=== PATIENT | male | born 1940 | race Caucasian/White ===

== ENCOUNTER 2019-01-02 19:13 | Emergency (ER) | payer MEDICARE, BC ==
[~2019-01-02] VITALS: Ht 167.6 cm; Wt 81.6 kg
[2019-01-02] MEDS ORDERED: ASPIRIN 81 MG TAB.CHEW PO ONE (19:30)
[2019-01-02] MEDS ORDERED: IV NORMAL SALINE 1000 ML BAG IV ONE (19:30)
[2019-01-02] MEDS ORDERED: NITROGLYCERIN 0.4 MG/TAB BOTTLE SL ONE ×2 (19:30→19:38)
[2019-01-02] MEDS ORDERED: ASPIRIN 81 MG TAB.CHEW ONE (19:38)
--- NOTE | 2019-01-02 19:43 | NUR ---
AFTER 1ST DOSE OF NITRO LEFT SIDE CP IS 7/10 FROM 10
[2019-01-02 19:45] LABS: BASOPHILS # (AUTO) 0.1 K/uL (0.0-8.0); EOSINOPHILS # (AUTO) 0.1 K/uL (0.0-0.7); EOSINOPHILS % (AUTO) 0.8 % (0.0-7.0); HEMOGLOBIN 15.1 g/dL (12.5-16.3); LYMPHOCYTES # (AUTO) 2.7 K/uL (20.0-40.0); LYMPHOCYTES % (AUTO) 31.8 % (20.5-51.5); MEAN CORPUSCULAR HEMOGLOBIN 31.6 uug (23.8-33.4); MEAN CORPUSCULAR HGB CONC 34 g/dL (32.5-36.3); MEAN CORPUSCULAR VOLUME 94.3 fL (73.0-96.2); MONOCYTES # (AUTO) 0.5 K/uL (2.0-10.0); MONOCYTES % (AUTO) 6.1 % (0.0-11.0); NEUTROPHILS # (AUTO) 5.1 K/uL (1.8-8.9); NEUTROPHILS % (AUTO) 60.3 % (38.5-71.5); PLATELET COUNT (AUTO) 250 K/uL (152-348); RED BLOOD CELL COUNT(AUTO) 4.77 MIL/uL (4.06-5.63); WHITE BLOOD COUNT (AUTO) 8.5 K/uL (3.6-10.2)
[2019-01-02] MEDS ORDERED: SITA1TBM7 PO (19:45)
[2019-01-02] MEDS ORDERED: CLON1TAB12 PO (19:45)
[2019-01-02] MEDS ORDERED: BUDE10.22 IH (19:45)
[2019-01-02] MEDS ORDERED: ALIS300T PO (19:45)
[2019-01-02] MEDS ORDERED: PITA4TAB PO (19:45)
--- NOTE | 2019-01-02 19:48 | NUR ---
CP IS 6/10. HOLD 3RD DOSE OF NITRO DUE TO BP 99/70
[2019-01-02 19:54] LABS: CARBON DIOXIDE 23 mmol/L (21-32); CHLORIDE 107 mmol/L (98-107); CREATININE 0.9 mg/dL (0.6-1.3); GLUCOSE 109 mg/dL (74-106); POTASSIUM 4.1 mmol/L (3.5-5.1); UREA NITROGEN, BLOOD 14 mg/dL (7-18)
[2019-01-02 20:07] LABS: ALANINE AMINOTRANSFERASE 16 U/L (16-63); ALKALINE PHOSPHATASE 57 U/L (50-136); ASPARTATE AMINOTRANSFERASE 12 U/L (15-37); BILIRUBIN,DIRECT 0.2 mg/dL (0.0-0.2); BILIRUBIN,TOTAL 0.4 mg/dL (0.2-1.0); TOTAL PROTEIN, SERUM 7.1 g/dL (6.4-8.2)
[2019-01-02] MEDS ORDERED: ONDANSETRON IV *ER 4 MG/2 ML VIAL IV ONE (20:15)
[2019-01-02] MEDS ORDERED: HYDROMORPHONE 1 MG/1 ML DISP.SYRIN IV ONE (20:15)
[2019-01-02] MEDS ORDERED: ONDANSETRON 4 MG/2 ML VIAL ONE (20:25)
[2019-01-02] MEDS ORDERED: HYDROMORPHONE 1 MG/1 ML DISP.SYRIN ONE (20:25)
--- NOTE | 2019-01-02 23:00 | NUR ---
IV removed. Catheter intact and site benign. Pressure and 4x4 gauze applied to site. No bleeding noted.
--- NOTE | 2019-01-02 23:03 | NUR ---
Patient discharged to home in stable conditon WITH DAUGHTER TAKING PATIENT HOME. Written and verbal after care instructions given. Patient verbalizes understanding of instructions. WALKED OUT OF ER WITH NO DISTRESS NOTED
[2019-01-02 23:05] VITALS: BP 135/75
== END 2019-01-02 23:06 | disposition home or self-care (01) ==
LOC: ER 19:15
DX: R07.89 Other chest pain (principal); M54.9 Dorsalgia, unspecified; J44.9 Chronic obstructive pulmonary disease, unspecified; E11.9 Type 2 diabetes mellitus without complications; I10 Essential (primary) hypertension; E78.5 Hyperlipidemia, unspecified; Z79.899 Other long term (current) drug therapy
CPT/HCPCS: 36415; 71045; 74176; 80048; 80076; 83880; 84484; 85025; 85730; 93005 ×2; 96374; 96375; 99284; J1170; J2405; 70030-TC; A4663; J7030

== ENCOUNTER 2019-03-17 19:27 | Inpatient (IN) | payer MEDICARE, BC ==
[~2019-03-17] VITALS: Ht 182.9 cm; Wt 68.2 kg
[~2019-03-17 19:27] MED LIST: ALIS300T PO; BUDE10.22 IH; CLON1TAB12 PO; PITA4TAB PO; SITA1TBM7 PO
[2019-03-17] MEDS ORDERED: LIDOCAINE 1%-EPI 1:100,000 20 ML VIAL TP ONE (19:45)
[2019-03-17] MEDS ORDERED: TDAP DIPH,PERTUSS,TET VAC/PF 0.5 ML DISP.SYRIN IM ONE ×2 (19:45→20:48)
[2019-03-17] MEDS ORDERED: SODIUM BICARBONATE 4.2 % (NEUT) 5 ML VIAL TP ONE (19:45)
[2019-03-17] MEDS ORDERED: ONDANSETRON 4 MG/2 ML VIAL ONE (19:55)
[2019-03-17] MEDS ORDERED: IV NORMAL SALINE 1000 ML BAG IV ONE (20:00)
[2019-03-17] MEDS ORDERED: ONDANSETRON IV *ER 4 MG/2 ML VIAL IV ONE (20:00)
[2019-03-17 20:04] LABS: BASOPHILS # (AUTO) 0.1 K/uL (0.0-8.0); BASOPHILS % (AUTO) 0.9 % (0.0-2.0); EOSINOPHILS # (AUTO) 0.1 K/uL (0.0-0.7); EOSINOPHILS % (AUTO) 1.8 % (0.0-7.0); HEMATOCRIT 46.6 % (36.7-47.1); HEMOGLOBIN 15.8 g/dL (12.5-16.3); LYMPHOCYTES # (AUTO) 2.5 K/uL (20.0-40.0); MEAN CORPUSCULAR HEMOGLOBIN 31.3 uug (23.8-33.4); MEAN CORPUSCULAR HGB CONC 34 g/dL (32.5-36.3); MEAN CORPUSCULAR VOLUME 92.2 fL (73.0-96.2); MONOCYTES # (AUTO) 0.5 K/uL (2.0-10.0); MONOCYTES % (AUTO) 6.1 % (0.0-11.0); NEUTROPHILS # (AUTO) 4.8 K/uL (1.8-8.9); NEUTROPHILS % (AUTO) 60.2 % (38.5-71.5); PLATELET COUNT (AUTO) 207 K/uL (152-348); RED BLOOD CELL COUNT(AUTO) 5.06 MIL/uL (4.06-5.63); WHITE BLOOD COUNT (AUTO) 7.9 K/uL (3.6-10.2)
[2019-03-17 20:19] LABS: ALANINE AMINOTRANSFERASE 12 U/L (16-63); ALKALINE PHOSPHATASE 79 U/L (50-136); ASPARTATE AMINOTRANSFERASE 8 U/L (15-37); BILIRUBIN,DIRECT 0.1 mg/dL (0.0-0.2); BILIRUBIN,TOTAL 0.2 mg/dL (0.2-1.0); CARBON DIOXIDE 22 mmol/L (21-32); CHLORIDE 108 mmol/L (98-107); CREATININE 0.7 mg/dL (0.6-1.3); GLUCOSE 157 mg/dL (74-106); POTASSIUM 3.6 mmol/L (3.5-5.1); TOTAL PROTEIN, SERUM 6.7 g/dL (6.4-8.2); UREA NITROGEN, BLOOD 12 mg/dL (7-18)
--- NOTE | 2019-03-17 20:24 | NUR ---
Pt went down to radiology dept for xray & ct scan, accompanied by daughter. no acute distress noted.
--- NOTE | 2019-03-17 21:05 | NUR ---
Suture tray set up. Dr. Beckett at bedside.
[2019-03-17] MEDS ORDERED: NEOMY/BACITRA/POLYMYXIN B OINT UD PACKET TP ONE (21:22)
--- NOTE | 2019-03-17 21:35 | NUR ---
Paged [facility] for panel call. Pending call back from Dr. De Dios.
--- NOTE | 2019-03-17 21:39 | NUR ---
GREGORIO Adams MD, speaking to Dr. Lanre Amin via telephone.
[2019-03-17] MEDS ORDERED: ROSU10TA2 PO (21:43)
[2019-03-17] MEDS ORDERED: METF-494 PO (21:43)
[2019-03-17] MEDS ORDERED: GABA100C PO (21:43)
[2019-03-17] MEDS ORDERED: AZIL1TAB3 PO (21:43)
--- NOTE | 2019-03-17 21:51 | NUR ---
Pt. admitted to Telemetry, under care of Dr. Lanre Amin. Diagnosis: Syncope. Belongs List completed.
--- NOTE | 2019-03-17 22:00 | NUR ---
Admitting notes: patient received on unit with daughter and son-in-law at side. All pertinent assessments completed and patient history documented. Patient is alert and oriented x3, is Farsi speaking but does understand Senegalese and can respond to inquiries in Senegalese. Photographic documentation taken of forehead laceration that was present on admission. All new orders from reviewed and carried out per shift. VS are wnl and patient is stable. Safety and fall precaution measures have been implemented. Call light and personal items are within reach at all times. Will continue to monitor.
[2019-03-17 22:25] VITALS: BP 167/88
[2019-03-17] MEDS ORDERED: MORPHINE SULFATE 2 MG/1 ML DISP.SYRIN IV PRN (22:45)
[2019-03-17] MEDS ORDERED: ONDANSETRON 4 MG/2 ML VIAL IV PRN (23:00)
[2019-03-17] MEDS: ACETAMINOPHEN 325 MG TABLET PO PRN (23:02)
[2019-03-17] MEDS ORDERED: ZOLPIDEM 5 MG TABLET PO PRN (23:30)
[2019-03-17] MEDS: ALBUTEROL SULFATE 2.5 MG/3 ML NEBU NEB PRN (23:30)
[2019-03-17] MEDS ORDERED: DEXTROSE 50% 50 ML DISP.SYRIN IV PRN (23:45)
[2019-03-17] MEDS ORDERED: INSULIN REGULAR, HUMAN 300 UNIT/3 ML VIAL SQ PRN (23:45)
[2019-03-18 00:38] VITALS: BP 109/61
[2019-03-18 04:37] VITALS: BP 115/65
[2019-03-18] MEDS: ALBUTEROL SULFATE 2.5 MG/3 ML NEBU NEB PRN (05:04)
--- NOTE | 2019-03-18 05:13 | NUR ---
Patient slept throughout night after receiving prescribed prn sleeping medication. Complaints of pain were addressed with prescribed acetaminophen, which brought patient relief. VS are wnl and patient is stable. All safety and fall precaution measures remain in place. Call light and personal items are within reach at all times.
[2019-03-18] MEDS: ACETAMINOPHEN 325 MG TABLET PO PRN (05:28)
[2019-03-18] MEDS: BLOOD SUGAR DIAGNOSTIC 1 EACH STRIP VI SCH ×2 (05:35→13:13)
--- NOTE | 2019-03-18 06:40 | NUR ---
Daughter called to check on father. I advised that patient slept comfortably throughout night and did eat after she left. Daughter would like to know if doctor will see her dad today and what time. I explained that doctor will see father today but do not have a specific time when he will arrive. Daughter would like to be contacted if Dr. De Dios decides to run additional tests and with updates. Daughter, Sweta, phone number is [phone]. Son-in-law, Blake, phone number is [phone].
--- NOTE | 2019-03-18 06:49 | NUR ---
For any updates on patient, or if any tests are ordered by doctor, please call jenniferSweta at [phone]. Son-in-lawBlake's number is [phone].
[2019-03-18 06:54] LABS: BASOPHILS # (AUTO) 0.1 K/uL (0.0-8.0); BASOPHILS % (AUTO) 1.1 % (0.0-2.0); EOSINOPHILS # (AUTO) 0.1 K/uL (0.0-0.7); EOSINOPHILS % (AUTO) 1.4 % (0.0-7.0); HEMATOCRIT 44.9 % (36.7-47.1); HEMOGLOBIN 14.8 g/dL (12.5-16.3); LYMPHOCYTES # (AUTO) 2.7 K/uL (20.0-40.0); MEAN CORPUSCULAR HEMOGLOBIN 30.7 uug (23.8-33.4); MEAN CORPUSCULAR HGB CONC 33 g/dL (32.5-36.3); MEAN CORPUSCULAR VOLUME 93.4 fL (73.0-96.2); MONOCYTES # (AUTO) 0.6 K/uL (2.0-10.0); MONOCYTES % (AUTO) 8.3 % (0.0-11.0); NEUTROPHILS # (AUTO) 4.1 K/uL (1.8-8.9); NEUTROPHILS % (AUTO) 53.2 % (38.5-71.5); PLATELET COUNT (AUTO) 193 K/uL (152-348); RED BLOOD CELL COUNT(AUTO) 4.81 MIL/uL (4.06-5.63); WHITE BLOOD COUNT (AUTO) 7.6 K/uL (3.6-10.2)
[2019-03-18] MEDS ORDERED: PANTOPRAZOLE SODIUM 40 MG TABLET.DR PO SCH (07:00)
[2019-03-18 07:26] LABS: ALANINE AMINOTRANSFERASE 10 U/L (16-63); ALKALINE PHOSPHATASE 69 U/L (50-136); ASPARTATE AMINOTRANSFERASE 10 U/L (15-37); BILIRUBIN,TOTAL 0.4 mg/dL (0.2-1.0); CARBON DIOXIDE 28 mmol/L (21-32); CHLORIDE 107 mmol/L (98-107); CHOLESTEROL 225 mg/dL (<200); CREATININE 0.8 mg/dL (0.6-1.3); GLUCOSE 158 mg/dL (74-106); HDL CHOLESTEROL 49 mg/dL (40-60); MAGNESIUM 1.8 mg/dL (1.8-2.4); PHOSPHOROUS 3.5 mg/dL (2.5-4.9); POTASSIUM 4.2 mmol/L (3.5-5.1); TOTAL PROTEIN, SERUM 6.2 g/dL (6.4-8.2); TRIGLYCERIDES 162 MG/DL (30-150); UREA NITROGEN, BLOOD 14 mg/dL (7-18)
[2019-03-18] MEDS ORDERED: BLOOD SUGAR DIAGNOSTIC 1 EACH STRIP VI SCH (07:30)
[2019-03-18] MEDS ORDERED: CHLORTHALIDONE 25 MG TABLET PO SCH (10:00)
[2019-03-18] MEDS ORDERED: LOSARTAN POTASSIUM 50 MG TABLET PO SCH (10:00)
[2019-03-18] MEDS ORDERED: HYDROCODONE/APAP 5-325MG TABLET PO PRN (10:00)
[2019-03-18] MEDS ORDERED: FLUTICASONE/VILANTEROL 1 EACH BLST.W.DEV INH SCH (10:45)
[2019-03-18] MEDS ORDERED: IBUPROFEN 400 MG TABLET PO PRN ×2 (11:00→11:15)
[2019-03-18] MEDS ORDERED: GABAPENTIN 100 MG CAPSULE PO PRN (11:30)
[2019-03-18] MEDS ORDERED: IBUPROFEN 600 MG TABLET PO PRN (11:30)
[2019-03-18] MEDS ORDERED: IBUPROFEN 200 MG TABLET PO STA (11:37)
[2019-03-18 11:52] VITALS: BP 146/87
[2019-03-18 16:16] VITALS: BP 136/72
--- NOTE | 2019-03-18 17:25 | NUR ---
HOME INSTRUCTIONS REVIEWED WITH PT. AND DAUGHTER. I/V D/C'D. VERBAL AND WRITTEN HOME INSTRUCTIONS GIVEN. FWW ADJUSTED FOR PT HEIGHT AND GIVEN TO PT. FOR HOME USE. PITER ALAMO, DR. ARRIOLA IN TO SEE PT. REVIEW ALL TEST RESULTS AND REVIEW PLAN OF CARE AND HOME CARE. DISCHARGED TO DAUGHTER VIA W/C BY R.N.
[2019-03-18] MEDS ORDERED: METFORMIN XR 500 MG TAB.SR.24H PO SCH ×2 (18:00)
[2019-03-18] MEDS ORDERED: CLONAZEPAM 1 MG TABLET PO SCH (21:00)
[2019-03-18] MEDS ORDERED: CLONAZEPAM 1 MG TABLET PO PRN (21:00)
[2019-03-18] MEDS ORDERED: ATORVASTATIN 20 MG TABLET PO SCH (21:00)
== END 2019-03-18 17:15 | disposition home or self-care (01) | DRG 74 ==
LOC: ER 19:29 → TELE3 21:52
PROVIDERS: ADMIT Internal Medicine; ATTEND Nurse Practitioner Acute Care
PROC: 0HQ1XZZ Repair Face Skin, External Approach (ICD-10-PCS; principal; 2019-03-17)
DX: G90.8 Other disorders of autonomic nervous system (principal); S01.81XA Laceration without foreign body of other part of head, initial encounter; W18.30XA Fall on same level, unspecified, initial encounter; Y92.039 Unspecified place in apartment as the place of occurrence of the external cause; E78.5 Hyperlipidemia, unspecified; I10 Essential (primary) hypertension; S20.212A Contusion of left front wall of thorax, initial encounter; Y92.89 Other specified places as the place of occurrence of the external cause; R55 Syncope and collapse; J44.9 Chronic obstructive pulmonary disease, unspecified; E11.9 Type 2 diabetes mellitus without complications; Z79.84 Long term (current) use of oral hypoglycemic drugs; Z79.51 Long term (current) use of inhaled steroids; Z79.899 Other long term (current) drug therapy; F17.210 Nicotine dependence, cigarettes, uncomplicated
CPT/HCPCS: 36415; 70030-TC; 70450; 71045; 71101; 83735; 84100; 84443; 85025; 85730; 90715; 93005; 93307; 94640; 94664; A4663; G0378; J1815; J2405; J3490

== ENCOUNTER 2019-03-27 10:05 | Emergency (ER) | payer MEDICARE, BC ==
[~2019-03-27] VITALS: Ht 182.9 cm; Wt 68.5 kg
[~2019-03-27 10:05] MED LIST changes: +GABA100C PO; +METF-494 PO
--- NOTE | 2019-03-27 10:27 | NUR ---
PT IS IN ROOM #2A. DR MARIEE EVALUATED THE PT.
[2019-03-27] MEDS ORDERED: LIDOCAINE HCL 1% 20 ML VIAL IJ ONE (10:30)
[2019-03-27] MEDS ORDERED: LIDOCAINE HCL 1% 20 ML VIAL ONE (10:42)
[2019-03-27 10:45] LABS: BASOPHILS # (AUTO) 0.1 K/uL (0.0-8.0); BASOPHILS % (AUTO) 1.2 % (0.0-2.0); EOSINOPHILS # (AUTO) 0.2 K/uL (0.0-0.7); EOSINOPHILS % (AUTO) 1.8 % (0.0-7.0); HEMATOCRIT 45.9 % (36.7-47.1); HEMOGLOBIN 15.9 g/dL (12.5-16.3); LYMPHOCYTES # (AUTO) 2.4 K/uL (20.0-40.0); LYMPHOCYTES % (AUTO) 27.8 % (20.5-51.5); MEAN CORPUSCULAR HEMOGLOBIN 31.4 uug (23.8-33.4); MEAN CORPUSCULAR HGB CONC 35 g/dL (32.5-36.3); MEAN CORPUSCULAR VOLUME 90.9 fL (73.0-96.2); MONOCYTES # (AUTO) 0.5 K/uL (2.0-10.0); MONOCYTES % (AUTO) 6.2 % (0.0-11.0); NEUTROPHILS # (AUTO) 5.5 K/uL (1.8-8.9); PLATELET COUNT (AUTO) 227 K/uL (152-348); RED BLOOD CELL COUNT(AUTO) 5.05 MIL/uL (4.06-5.63); WHITE BLOOD COUNT (AUTO) 8.7 K/uL (3.6-10.2)
[2019-03-27 11:00] LABS: ALANINE AMINOTRANSFERASE 11 U/L (16-63); ALKALINE PHOSPHATASE 84 U/L (50-136); ASPARTATE AMINOTRANSFERASE 8 U/L (15-37); BILIRUBIN,DIRECT 0.2 mg/dL (0.0-0.2); BILIRUBIN,TOTAL 1.1 mg/dL (0.2-1.0); CARBON DIOXIDE 27 mmol/L (21-32); CHLORIDE 101 mmol/L (98-107); GLUCOSE 223 mg/dL (74-106); POTASSIUM 4.9 mmol/L (3.5-5.1); TOTAL PROTEIN, SERUM 7.1 g/dL (6.4-8.2); UREA NITROGEN, BLOOD 19 mg/dL (7-18)
[2019-03-27] MEDS ORDERED: NEOMY/BACITRA/POLYMYXIN B OINT UD PACKET TP ONE ×2 (11:45→11:46)
--- NOTE | 2019-03-27 12:24 | NUR ---
PT WAS DC'd TO HOME. D/C INSTRUCTIONS GIVEN TO THE PT AND TO HIS FAMILY. NO BLEEDING. DRESSING OF THE WOUND IS INTACT.
[2019-03-27 12:26] VITALS: BP 138/77
== END 2019-03-27 12:27 | disposition home or self-care (01) ==
LOC: ER 10:05
DX: S02.2XXA Fracture of nasal bones, initial encounter for closed fracture (principal); S01.81XA Laceration without foreign body of other part of head, initial encounter; S00.531A Contusion of lip, initial encounter; S80.212A Abrasion, left knee, initial encounter; M25.512 Pain in left shoulder; J45.909 Unspecified asthma, uncomplicated; E11.9 Type 2 diabetes mellitus without complications; I10 Essential (primary) hypertension; E78.5 Hyperlipidemia, unspecified; F17.200 Nicotine dependence, unspecified, uncomplicated; Z88.0 Allergy status to penicillin; Z79.899 Other long term (current) drug therapy; X58.XXXA Exposure to other specified factors, initial encounter; Y93.89 Activity, other specified; Y92.89 Other specified places as the place of occurrence of the external cause; Y99.8 Other external cause status
CPT/HCPCS: 12013; 36415; 70160; 70450; 72125; 80048; 80076; 84484; 85025; 85730; 93005; 99284; J3490; 70030-TC; A4217; A4663; J7030

== ENCOUNTER 2020-03-26 14:55 | Inpatient (IN) | payer MEDICARE, BC ==
[~2020-03-26] VITALS: Ht 165.1 cm; Wt 69.9 kg
[2020-03-26 15:12] LABS: BASOPHILS # (AUTO) 0.1 K/uL (0.0-8.0); BASOPHILS % (AUTO) 0.5 % (0.0-2.0); HEMATOCRIT 51.6 % (36.7-47.1); LYMPHOCYTES # (AUTO) 1.5 K/uL (20.0-40.0); LYMPHOCYTES % (AUTO) 13.5 % (20.5-51.5); MEAN CORPUSCULAR HEMOGLOBIN 31.8 uug (23.8-33.4); MEAN CORPUSCULAR HGB CONC 33 g/dL (32.5-36.3); MEAN CORPUSCULAR VOLUME 96.5 fL (73.0-96.2); MONOCYTES # (AUTO) 1.1 K/uL (2.0-10.0); MONOCYTES % (AUTO) 10.1 % (0.0-11.0); NEUTROPHILS # (AUTO) 8.6 K/uL (1.8-8.9); NEUTROPHILS % (AUTO) 75.9 % (38.5-71.5); PLATELET COUNT (AUTO) 226 K/uL (152-348); RED BLOOD CELL COUNT(AUTO) 5.35 MIL/uL (4.06-5.63); WHITE BLOOD COUNT (AUTO) 11.3 K/uL (3.6-10.2)
--- NOTE | 2020-03-26 15:13 | NUR ---
Patient is in CT scan with nursing erection shop supervisor Antolin. CODE STROKE in progress
[2020-03-26 15:23] LABS: CREATININE 1.1 mg/dL (0.6-1.3); POTASSIUM 4.9 mmol/L (3.5-5.1)
[2020-03-26 15:30] LABS: BILIRUBIN,DIRECT 0.1 mg/dL (0.0-0.2); BILIRUBIN,TOTAL 0.7 mg/dL (0.2-1.0); TOTAL PROTEIN, SERUM 7.7 g/dL (6.4-8.2)
[2020-03-26] MEDS ORDERED: SWABABLE VALVE TRANSFER SET EA MC ONE (15:55)
[2020-03-26] MEDS ORDERED: IV NORMAL SALINE 250 ML IV ONE (15:55)
[2020-03-26] MEDS ORDERED: IOHEXOL 350 100 ML INFUS..BTL ONE (15:55)
[2020-03-26] MEDS ORDERED: NEBI5TAB8 PO (16:21)
[2020-03-26] MEDS ORDERED: LEVE500T20 PO (16:21)
[2020-03-26] MEDS ORDERED: SOLI10TA2 PO (16:21)
[2020-03-26] MEDS ORDERED: TRAZ-182 PO (16:21)
--- NOTE | 2020-03-26 16:30 | NUR ---
CALLED [facility] FOR PANEL PLACEMENT
[2020-03-26] MEDS ORDERED: ASPIRIN 81 MG TAB.CHEW PO ONE (16:45)
[2020-03-26] MEDS ORDERED: IV NORMAL SALINE 1000 ML BAG IV ONE (17:00)
[2020-03-26] MEDS ORDERED: ASPIRIN 81 MG TAB.CHEW ONE (17:02)
[2020-03-26] MEDS ORDERED: MAG HYDROX/AL HYDROX/SIMETH 30 ML LIQUID UDC PO PRN (17:30)
[2020-03-26] MEDS ORDERED: DEXTROSE 50% 50 ML DISP.SYRIN IV PRN (17:45)
--- NOTE | 2020-03-26 19:03 | NUR ---
Assumed care for patient at this time. AO x 3. Able to verbalize needs, clear speech. Able to drink water with straw, as requested. Report received from outgoing RN, per RN we are just waiting for Covid rapid results, and report was given to Avani RN from 3rd floor. Patient in semi fowlers position, still noted with bilateral arm/leg weakness. Side rails up x 2. Bed locked in position.
--- NOTE | 2020-03-26 19:28 | NUR ---
COVID results for patient is negative per Dr. Beckett, patient is ready to go up.
[2020-03-26] MEDS ORDERED: LABETALOL HCL 100 MG/20 ML VIAL IV PRN (19:45)
[2020-03-26] MEDS ORDERED: LABETALOL HCL 100 MG/20 ML VIAL ONE (19:46)
--- NOTE | 2020-03-26 20:05 | NUR ---
Patient transported to Room 304. admitted under [facility] ROWE. Dx: R Arm Weakness. Belongings list completed. report given to Kinga SANCHEZ.
[2020-03-26 20:10] VITALS: BP 134/74
--- NOTE | 2020-03-26 20:10 | NUR ---
Admitted a 80 years old male with Diagnosis of CVA. Patient AAOx2-3. In no acute distress. O2 sat at 98% on RA, although complained of mild SOB and provided O2 at 2LPM via NC. Also complained of pain on right shoulder and back area, will notify . NSR on tele at 98/min. Denies any chest pain. Unable to move right arm. NIHHS/Stroke assessment done per protocol. IV site on left AC intact and patent. Routine admission care done. Plan of care initiated. Safety measure initiated and call stevens within reached.
[2020-03-26] MEDS: IV NS 1000 ML 1,000 ML IV PRN (20:36)
[2020-03-26] MEDS ORDERED: CLONAZEPAM 1 MG TABLET PO PRN (21:00)
--- NOTE | 2020-03-26 21:30 | NUR ---
Paged Dr. Blount to inform regarding pt complain of pain. Awaiting for return call.
[2020-03-26] MEDS: BLOOD SUGAR DIAGNOSTIC 1 EACH STRIP VI SCH (21:31)
--- NOTE | 2020-03-26 21:51 | NUR ---
Dr. Blount called back with order to start patient on Morphine 2mg IV Q4HRS PRN for pain. Order read back and verified. Will carry out order.
[2020-03-26] MEDS: MORPHINE SULFATE 2 MG/1 ML DISP.SYRIN IV PRN (22:45)
--- NOTE | 2020-03-26 23:00 | NUR ---
MRI questionnaire done with pt. Able to answer all questions. Unable to sign due to right arm weakness. Questionnaire signed by this nurse and witnessed by charge nurse Xiao.
--- NOTE | 2020-03-26 23:30 | NUR ---
Patient noted now being able to move right hand and fingers only. Still unable to lift up right arm. Continue to monitor.
[2020-03-27] VITALS: BP 130/80
[2020-03-27 04:00] VITALS: BP 128/72
--- NOTE | 2020-03-27 05:38 | NUR ---
Patient unable to move right UE again. Will continue to monitor.
--- NOTE | 2020-03-27 05:59 | NUR ---
AAOx2-3. In no acute distress. O2 at 2LPM via NC in place. O2 sat at 97%. Morphine 2mg IV PRN per order given for complain of right shoulder and back area with helped. SR on tele with occasional PVC's at 94/min. Needs attended to and met. Safety measure maintained and call stevens within reached.
[2020-03-27] MEDS: IV NS 1000 ML 1,000 ML IV PRN ×2 (06:14→17:52)
--- NOTE | 2020-03-27 06:23 | NUR ---
TEXTED DR. DENT FOR MRI APPROVAL.
[2020-03-27 06:31] LABS: BASOPHILS # (AUTO) 0.1 K/uL (0.0-8.0); EOSINOPHILS % (AUTO) 0.3 % (0.0-7.0); HEMATOCRIT 40.3 % (36.7-47.1); HEMOGLOBIN 13.6 g/dL (12.5-16.3); LYMPHOCYTES # (AUTO) 2.8 K/uL (20.0-40.0); LYMPHOCYTES % (AUTO) 29.9 % (20.5-51.5); MEAN CORPUSCULAR HEMOGLOBIN 32.3 uug (23.8-33.4); MEAN CORPUSCULAR HGB CONC 34 g/dL (32.5-36.3); MEAN CORPUSCULAR VOLUME 95.9 fL (73.0-96.2); MONOCYTES # (AUTO) 0.9 K/uL (2.0-10.0); NEUTROPHILS # (AUTO) 5.5 K/uL (1.8-8.9); NEUTROPHILS % (AUTO) 58.8 % (38.5-71.5); PLATELET COUNT (AUTO) 170 K/uL (152-348); WHITE BLOOD COUNT (AUTO) 9.3 K/uL (3.6-10.2)
[2020-03-27 06:37] LABS: POTASSIUM 3.8 mmol/L (3.5-5.1)
[2020-03-27] MEDS: MORPHINE SULFATE 2 MG/1 ML DISP.SYRIN IV PRN ×3 (06:37→21:49)
[2020-03-27] MEDS: BLOOD SUGAR DIAGNOSTIC 1 EACH STRIP VI SCH ×4 (06:37→20:40)
[2020-03-27 06:44] LABS: BILIRUBIN,DIRECT 0.1 mg/dL (0.0-0.2); BILIRUBIN,TOTAL 0.6 mg/dL (0.2-1.0); TOTAL PROTEIN, SERUM 5.7 g/dL (6.4-8.2)
[2020-03-27 06:52] LABS: THYROID STIMULATING HORMONE 0.399 mIU/mL (0.358-3.740)
--- NOTE | 2020-03-27 07:15 | NUR ---
pt received in bed sleeping call light with in reach vs are stable pt is on o2 2l via nasal canula
[2020-03-27] MEDS: ASPIRIN EC 81 MG TABLET.DR PO SCH (08:14)
[2020-03-27] MEDS: levETIRAcetam 500 MG TABLET PO SCH ×2 (08:14→16:00)
[2020-03-27] MEDS: OXYBUTYNIN CHLORIDE 5 MG TABLET PO SCH (08:15)
[2020-03-27] MEDS ORDERED: IPRATROPIUM BROMIDE 0.5 MG/2.5 ML NEBU NEB PRN (09:00)
--- NOTE | 2020-03-27 10:28 | NUR ---
pt went to [facility] via ambulances for mri in stable condition
--- NOTE | 2020-03-27 11:38 | NUR ---
pt received back from mri in stable condition
[2020-03-27 11:47] VITALS: BP 126/72
[2020-03-27] MEDS: INSULIN REGULAR, HUMAN 300 UNIT/3 ML VIAL SQ PRN ×3 (12:03→20:24)
--- NOTE | 2020-03-27 15:11 | NUR ---
Drawer In Hand Consultation: SW met with this patient today. Patient is a 80 year old male. Patient was lying down in bed, in his assigned hospital room. Patient was alert, oriented, receptive to meeting with this SW. Patient's Upper Sorbian speaking skills are limited, however still sufficient enough for SW to gather information from the patient. Patient states that 2 nights ago, he was feeling dizzy, and experienced weakness in his right upper and lower extremities. Patient reports that his daughter came to his house in the morning, after which paramedics were called and patient was brought to the ED. Patient states prior to this incident, he was independent with his ADL's and was also driving. SW administered the PHQ-9 to assess patient's mood and behavior. Patient denied experiencing any major feelings of sadness, difficulty with sleep or appetite, or any changes in his behavior or physical activity over the last 2 weeks. Patient expressed being worried about the weakness in his right extremities. SW validated and normalized patient's feelings, and provided support. Patient was pleasant, cooperative, and discussed discharge plans of wanting to return home. SW will continue to be available to the patient throughout his hospitalization, as needed. SW will work with the interdisciplinary team and case management, as needed, to ensure a safe discharge.
[2020-03-27 15:49] VITALS: BP 105/61
--- NOTE | 2020-03-27 19:30 | NUR ---
Patient alert oriented, no sob no chest pain, tele monitor sinus rhythm with pvc. Patient denies pain at this time, rendered good craig care. cont to monitor.
[2020-03-27 20:06] VITALS: BP 134/74
--- NOTE | 2020-03-27 22:15 | NUR ---
Patient complain of r shoulder pain, but patient able to moved right arm with some difficulty due to pain, medicated patient with effective results, rendered good craig care, no s/s of desaturation noted, cont to monitor.
[2020-03-27] MEDS: TRAZODONE 50 MG TABLET PO PRN (22:31)
[2020-03-28 00:03] VITALS: BP 128/72
[2020-03-28] MEDS: IV NS 1000 ML 1,000 ML IV PRN (04:00)
[2020-03-28 04:03] VITALS: BP 126/67
[2020-03-28] MEDS: BLOOD SUGAR DIAGNOSTIC 1 EACH STRIP VI SCH ×4 (05:46→20:36)
--- NOTE | 2020-03-28 05:57 | NUR ---
PATIENT ALERT ORIENTED, NO SOB NO CHEST PAIN, TELE MONITOR SINUS RYTHYM WITH PVC. PATIENT CONT ON PAIN MANAGEMENT OF R SHOULDER, RENDERED GOOD TARIQ CARE DUE BLADDER INCONTINENT, NO S/S OF HYPO/HYPERGYLCEMIA AT THIS TIME, CONT TO MONITOR.
[2020-03-28 06:18] LABS: BASOPHILS % (AUTO) 0.5 % (0.0-2.0); EOSINOPHILS # (AUTO) 0.1 K/uL (0.0-0.7); EOSINOPHILS % (AUTO) 0.9 % (0.0-7.0); HEMATOCRIT 37.6 % (36.7-47.1); HEMOGLOBIN 12.8 g/dL (12.5-16.3); LYMPHOCYTES # (AUTO) 2.5 K/uL (20.0-40.0); LYMPHOCYTES % (AUTO) 39.1 % (20.5-51.5); MEAN CORPUSCULAR HEMOGLOBIN 32.6 uug (23.8-33.4); MEAN CORPUSCULAR HGB CONC 34 g/dL (32.5-36.3); MEAN CORPUSCULAR VOLUME 96.1 fL (73.0-96.2); MONOCYTES # (AUTO) 0.5 K/uL (2.0-10.0); MONOCYTES % (AUTO) 7.6 % (0.0-11.0); NEUTROPHILS # (AUTO) 3.4 K/uL (1.8-8.9); NEUTROPHILS % (AUTO) 51.9 % (38.5-71.5); PLATELET COUNT (AUTO) 155 K/uL (152-348); RED BLOOD CELL COUNT(AUTO) 3.92 MIL/uL (4.06-5.63); WHITE BLOOD COUNT (AUTO) 6.5 K/uL (3.6-10.2)
[2020-03-28] MEDS: MORPHINE SULFATE 2 MG/1 ML DISP.SYRIN IV PRN ×4 (06:22→23:33)
[2020-03-28 06:30] LABS: CREATININE 0.7 mg/dL (0.6-1.3); POTASSIUM 3.7 mmol/L (3.5-5.1)
[2020-03-28] MEDS: OXYBUTYNIN CHLORIDE 5 MG TABLET PO SCH (08:00)
[2020-03-28] MEDS: ASPIRIN EC 81 MG TABLET.DR PO SCH (08:00)
[2020-03-28] MEDS: levETIRAcetam 500 MG TABLET PO SCH (08:00)
[2020-03-28] MEDS: INSULIN REGULAR, HUMAN 300 UNIT/3 ML VIAL SQ PRN ×2 (10:45→20:30)
[2020-03-28 11:40] VITALS: BP 120/64
[2020-03-28] MEDS ORDERED: ATOR20TA PO (12:19)
[2020-03-28] MEDS ORDERED: ASPI-618 PO (12:19)
[2020-03-28 16:24] VITALS: BP 135/76
[2020-03-28] MEDS: FLUTICASONE/VILANTEROL 1 EACH BLST.W.DEV INH SCH (16:40)
--- NOTE | 2020-03-28 20:00 | NUR ---
RECEIVED PATIENT AWAKE IN BED. C/O PAIN IN RIGHT SHOULDER. GIVEN MS 2MG IV PRN PER RN. VS WNL. NO RESP. DISTRESS NOTED. H/L INTACT AND PATENT. BED ALARM ON. CALL LIGHT IN REACH. ALL NEEDS ATTENDED. WILL CONTINUE TO MONITOR AND ASSESS.
[2020-03-28 20:08] VITALS: BP 130/79
[2020-03-28] MEDS: ATORVASTATIN 40 MG TABLET PO SCH (20:30)
[2020-03-28] MEDS: TRAZODONE 50 MG TABLET PO PRN (20:30)
[2020-03-28] MEDS ORDERED: ATORVASTATIN 20 MG TABLET PO SCH ×2 (21:00)
--- NOTE | 2020-03-29 05:14 | NUR ---
PATIENT ALERT NO SOB NO CHEST PAIN, CONT ON PAIN MANAGEMENT DUE R SHOULDER PAIN. PATIENT KEPT CLEAN AND DRY, VOIDING FREELY, CONT TO MONITOR.
[2020-03-29 05:44] VITALS: BP 125/68
[2020-03-29] MEDS: BLOOD SUGAR DIAGNOSTIC 1 EACH STRIP VI SCH ×4 (06:33→20:20)
[2020-03-29] MEDS: FLUTICASONE/VILANTEROL 1 EACH BLST.W.DEV INH SCH (09:11)
[2020-03-29] MEDS: ASPIRIN EC 81 MG TABLET.DR PO SCH (09:11)
[2020-03-29] MEDS: OXYBUTYNIN CHLORIDE 5 MG TABLET PO SCH (09:11)
[2020-03-29 11:05] VITALS: BP 143/83
[2020-03-29] MEDS: INSULIN REGULAR, HUMAN 300 UNIT/3 ML VIAL SQ PRN ×2 (12:21→20:24)
[2020-03-29 16:00] VITALS: BP 147/85
[2020-03-29] MEDS: MORPHINE SULFATE 2 MG/1 ML DISP.SYRIN IV PRN (18:01)
--- NOTE | 2020-03-29 18:12 | NUR ---
Patient stable throughout shift, awake AOx4. On RA with no SOB or distress noted at this time. Pain on right shoulder aggravated with movement. Wound on abdomen noted, cleaned and applied abdominal gauze. Had MRI Cervical spine done today. Morphine PRN as ordered given for shoulder pain. Bed locked in lowest position with siderails 2x up. Call light within reach.
--- NOTE | 2020-03-29 19:50 | NUR ---
Patient alert and awake lying on bed , no c/o pain or any discomfort at this time. IV LFA intact . Will continue to monitor .
[2020-03-29] MEDS: ATORVASTATIN 40 MG TABLET PO SCH (20:19)
[2020-03-29 20:20] VITALS: BP 131/73
[2020-03-29] MEDS: TRAZODONE 50 MG TABLET PO PRN (21:14)
[2020-03-30 04:45] VITALS: BP 145/78
--- NOTE | 2020-03-30 06:29 | NUR ---
Patient sleeping intermittently, arousable to verbal response. No c/o of pain or any distress noted. Patient used urinal during he shift . No change in condition noted. Safety precautions observed Will continue to monitor
[2020-03-30] MEDS: BLOOD SUGAR DIAGNOSTIC 1 EACH STRIP VI SCH ×3 (06:44→16:31)
[2020-03-30] MEDS: MORPHINE SULFATE 2 MG/1 ML DISP.SYRIN IV PRN ×2 (08:07→12:49)
[2020-03-30] MEDS: ASPIRIN EC 81 MG TABLET.DR PO SCH (08:08)
[2020-03-30] MEDS: OXYBUTYNIN CHLORIDE 5 MG TABLET PO SCH (08:08)
[2020-03-30] MEDS: FLUTICASONE/VILANTEROL 1 EACH BLST.W.DEV INH SCH (08:08)
[2020-03-30] MEDS: INSULIN REGULAR, HUMAN 300 UNIT/3 ML VIAL SQ PRN ×2 (11:53→16:46)
[2020-03-30 12:00] VITALS: BP 124/68
--- NOTE | 2020-03-30 13:16 | NUR ---
patient family called two daughters and one son, stated that they do not want him to go to [facility], family stated that they have their own neurosurgeon in [place], and that doctor did not recommend mariela, that doctor gave epidural to him," patient daughters and son were yelling on the phone, stating that we do not want patient to go to any other hospital, we would like to take him home," isabel medel aware. Addendum: 03/30/20 at 1331 by GRACY FREY RN, RN family gave their doctor name POLI AGUILAR NUMBER [phone], AND SON NUMBER IS [phone], GIVEN NUMBER TO ISABEL
--- NOTE | 2020-03-30 13:22 | NUR ---
family called back two daughters and son, started yelling arguing and screaming on the phone. answered family, and this property underwriter told family that we got your message, we respect it, and we are working with doctor about your message, will get back. family constantly kept yelling and screaming on the phone.
--- NOTE | 2020-03-30 13:28 | NUR ---
charge nurse and isabel ROWE is aware about situation with family.
--- NOTE | 2020-03-30 14:40 | NUR ---
charge nurse said patient family taking patient home around 1600 AMA, patient himself stated as well that he would like to go home today, [facility] made aware.
--- NOTE | 2020-03-30 14:42 | NUR ---
dr stevens neurologist said he spoke to patient daughter hector in the morning for atleast 30 minutes and explained about patient current condition, about MRI of neck, risks and benefits.
--- NOTE | 2020-03-30 15:56 | NUR ---
FAMILY CHANGED MIND AGAIN, PATIENT DISCHARGING TO [facility], VIA AMBULANCE
[2020-03-30 16:05] VITALS: BP 128/78
--- NOTE | 2020-03-30 16:27 | NUR ---
REPORT GIVEN TO ROBERTO SANCHEZ FROM [facility]
--- NOTE | 2020-03-30 16:46 | NUR ---
SNACK GIVEN TO PATIENT
--- NOTE | 2020-03-30 17:00 | NUR ---
offered patient change, and perineal care, patient refused and stated he does not want to be changed, explained risks involved, explained about skin issues if being wet, patient still stated "not now, leave me alone". patient right to refuse respected. will offer again.
--- NOTE | 2020-03-30 17:30 | NUR ---
PATIENT IS PICKED UP BY [facility], [facility]PORT GIVEN TO AMBULANCE DINKER, AND DEYSI RN FROM [facility], PATIENT IS ALERT, ORIENTED X3, NO SOB, RESP EVEN NONLABORED, SKIN WARM AND DRY TO TOUCH, DRESSING INTACT TO LEFT UPPER ABDOMEN, BELOW CHEST ABRASION, NO DRAINAGE NOTED. PATIENT IS BEDBOUND, KEPT CLEAN AND DRY. BELONGINGS CELL PHONE, HYDRAULIC LIFT DRIVER, SHOES, SENT WITH PATIENT, DENTURES WERE IN PATIENT MOUTH. NO DISTRESS NOTED.
--- NOTE | 2020-03-30 19:06 | NUR ---
1317 CHARGE NURSE ON DUTY SAID, FAMILY SPOKE TO [facility] AND STATED THEY WOULD LIKE TO TRANSFER PATIENT IN [facility].
== END 2020-03-30 17:30 | disposition short-term general hospital (02) | DRG 552 ==
LOC: ER 14:55 → TELE3 19:32 → MEDSURG3 03-28 17:55
PROVIDERS: ADMIT Nurse Practitioner Acute Care; ATTEND Nurse Practitioner Acute Care
DX: M47.22 Other spondylosis with radiculopathy, cervical region (principal); M62.82 Rhabdomyolysis; E87.2 Acidosis; G95.89 Other specified diseases of spinal cord; M75.51 Bursitis of right shoulder; G83.21 Monoplegia of upper limb affecting right dominant side; R29.705 NIHSS score 5; E86.0 Dehydration; M25.411 Effusion, right shoulder; M75.101 Unspecified rotator cuff tear or rupture of right shoulder, not specified as traumatic; E78.5 Hyperlipidemia, unspecified; F17.210 Nicotine dependence, cigarettes, uncomplicated; I10 Essential (primary) hypertension; J44.9 Chronic obstructive pulmonary disease, unspecified; W19.XXXA Unspecified fall, initial encounter; Y93.9 Activity, unspecified; Y92.009 Unspecified place in unspecified non-institutional (private) residence as the place of occurrence of the external cause; M25.511 Pain in right shoulder; R74.0 Nonspecific elevation of levels of transaminase and lactic acid dehydrogenase [LDH]; N19 Unspecified kidney failure; Z72.89 Other problems related to lifestyle; M77.9 Enthesopathy, unspecified; E11.9 Type 2 diabetes mellitus without complications; Z79.84 Long term (current) use of oral hypoglycemic drugs; R40.2362 Coma scale, best motor response, obeys commands, at arrival to emergency department; R40.2142 Coma scale, eyes open, spontaneous, at arrival to emergency department; R40.2252 Coma scale, best verbal response, oriented, at arrival to emergency department; S20.319A Abrasion of unspecified front wall of thorax, initial encounter; R55 Syncope and collapse
CPT/HCPCS: 36415; 70030-TC; 70450; 70496; 70551; 71045; 72125; 72141; 73030; 73200; 83605; 84443; 85025; 85730; 87040; 93005; 93307; 94664; 95819; A4663; G0378; J1815; J2270; J3490; J3590; J7030; J7050; Q9967

== ENCOUNTER 2024-05-21 23:42 | Emergency (ER) | payer MEDICARE, OTHER ==
[~2024-05-21] VITALS: Ht 182.9 cm; Wt 72.6 kg
[~2024-05-21 23:42] MED LIST changes: -ALIS300T PO; +ASPI-618 PO; +ATOR20TA PO; -GABA100C PO; +LEVE500T20 PO; +NEBI5TAB8 PO; -PITA4TAB PO; +SOLI10TA2 PO; +TRAZ-182 PO
[2024-05-22 00:28] LABS: ABG BASE EXCESS -6.3 mmol/L (-2.0-3.0); ABG HCO3 19.5 mmol/L (21.0-28.0); ABG PCO2 39.9 mmHg (35.0-48.0); ABG PH 7.307 (7.350-7.450); ABG PO2 58.2 mmHg (83.0-108.0); ABG SITE RIGHT RADIAL; ABG TOTAL HEMOGLOBIN 13.1 G/dL (13.5-17.5); AaDO2 87.8 mmHg; COHb 0.3 % (0.5-1.5); MetHb 0.3 % (0.0-1.5); O2Hb 85.2 % (94.0-98.0)
[2024-05-22] MEDS: ALBUTEROL SULFATE 2.5 MG/ 0.5 ML NEBU NEB ONE (00:30)
[2024-05-22] MEDS: levoFLOXacin 750 MG/D5W 150 ML PIGGYBACK IV ONE (00:30)
[2024-05-22] MEDS: ONDANSETRON 4 MG/2 ML VIAL IV ONE (00:30)
[2024-05-22 00:44] LABS: BASOPHILS # (AUTO) 0.1 K/UL (0.0-0.2); BASOPHILS % (AUTO) 0.6 % (0.0-2.0); EOSINOPHILS # (AUTO) 0.1 K/uL (0.0-0.7); EOSINOPHILS % (AUTO) 0.9 % (0.0-7.0); HEMATOCRIT 38.4 % (36.7-47.1); HEMOGLOBIN 12.5 g/dL (12.5-16.3); LYMPHOCYTES # (AUTO) 2.2 K/uL (0.8-4.8); LYMPHOCYTES % (AUTO) 20.6 % (20.5-51.5); MEAN CORPUSCULAR HEMOGLOBIN 28.6 uug (23.8-33.4); MEAN CORPUSCULAR HGB CONC 33 g/dL (32.5-36.3); MEAN CORPUSCULAR VOLUME 87.8 fL (73.0-96.2); MONOCYTES # (AUTO) 0.4 K/uL (0.1-1.30); MONOCYTES % (AUTO) 3.9 % (0.0-11.0); NEUTROPHILS # (AUTO) 7.9 K/uL (1.8-8.9); PLATELET COUNT (AUTO) 353 K/uL (152-348); RED BLOOD CELL COUNT(AUTO) 4.37 MIL/uL (4.06-5.63); RED CELL DISTRIBUTION WIDTH 14.3 % (12.1-16.2); WHITE BLOOD COUNT (AUTO) 10.7 K/uL (3.6-10.2)
[2024-05-22 00:45] LABS: DIFFERENTIAL COMMENT 1
[2024-05-22 00:46] LABS: AMMONIA < 10 umol/L (11-32)
[2024-05-22 00:51] LABS: CALCIUM 8.6 mg/dL (8.5-10.1); CARBON DIOXIDE 23 mmol/L (21-32); CHLORIDE 107 mmol/L (98-107); GLUCOSE 140 mg/dL (74-106); POTASSIUM 3.9 mmol/L (3.5-5.1); SODIUM SERUM 144 mmol/L (136-145); UREA NITROGEN, BLOOD 15 mg/dL (7-18)
[2024-05-22 01:07] LABS: LACTIC ACID 7.2 mmol/L (0.4-2.0)
[2024-05-22 01:09] LABS: ALANINE AMINOTRANSFERASE 7 U/L (16-63); ALBUMIN 2.5 g/dL (3.4-5.0); ALKALINE PHOSPHATASE 54 U/L (50-136); ASPARTATE AMINOTRANSFERASE 15 U/L (15-37); BILIRUBIN,TOTAL 0.1 mg/dL (0.2-1.0); NT-PRO BNP 71 pg/mL (0-125); TOTAL PROTEIN, SERUM 6.5 g/dL (6.4-8.2)
[2024-05-22] MEDS ORDERED: levoFLOXacin 750MG/D5W 150 ML IV ONE (01:34)
[2024-05-22] MEDS ORDERED: ONDANSETRON 4 MG/2 ML VIAL ONE (01:34)
[2024-05-22] MEDS ORDERED: ALBUTEROL SULFATE 2.5 MG/ 0.5 ML NEBU ONE (01:43)
[2024-05-22 02:38] VITALS: BP 147/78; TEMP 98; O2SAT 87
== END 2024-05-22 02:39 | disposition left against medical advice (07) ==
LOC: ER 23:46
DX: J96.01 Acute respiratory failure with hypoxia (principal); E11.9 Type 2 diabetes mellitus without complications; J44.89 Other specified chronic obstructive pulmonary disease; E78.5 Hyperlipidemia, unspecified; F17.200 Nicotine dependence, unspecified, uncomplicated; Z79.82 Long term (current) use of aspirin; Z79.84 Long term (current) use of oral hypoglycemic drugs; Z79.51 Long term (current) use of inhaled steroids; Z79.899 Other long term (current) drug therapy; Z88.0 Allergy status to penicillin; Z88.7 Allergy status to serum and vaccine
CPT/HCPCS: 99285; 96374; 71045; 80053; 82140; 83880; 85025; 87040 ×2; 84484; 36415; 82803; 93005; 83605; 36600 ×2; J2405; A4606; A4663; J1956

== ENCOUNTER 2024-08-08 18:04 | Emergency (ER) | payer MEDICARE, OTHER ==
[~2024-08-08] VITALS: Ht 182.9 cm; Wt 72.6 kg
[2024-08-08 19:07] LABS: BASOPHILS # (AUTO) 0.1 K/UL (0.0-0.2); BASOPHILS % (AUTO) 0.7 % (0.0-2.0); EOSINOPHILS % (AUTO) 0.3 % (0.0-7.0); HEMATOCRIT 38.9 % (36.7-47.1); HEMOGLOBIN 12.5 g/dL (12.5-16.3); LYMPHOCYTES % (AUTO) 10.9 % (20.5-51.5); MEAN CORPUSCULAR HEMOGLOBIN 27.9 uug (23.8-33.4); MEAN CORPUSCULAR HGB CONC 32 g/dL (32.5-36.3); MEAN CORPUSCULAR VOLUME 86.8 fL (73.0-96.2); MONOCYTES # (AUTO) 0.5 K/uL (0.1-1.30); NEUTROPHILS # (AUTO) 7.5 K/uL (1.8-8.9); NEUTROPHILS % (AUTO) 82.1 % (38.5-71.5); PLATELET COUNT (AUTO) 279 K/uL (152-348); RED BLOOD CELL COUNT(AUTO) 4.49 MIL/uL (4.06-5.63); RED CELL DISTRIBUTION WIDTH 16.1 % (12.1-16.2); WHITE BLOOD COUNT (AUTO) 9.1 K/uL (3.6-10.2)
[2024-08-08 19:29] LABS: DIFFERENTIAL COMMENT 1
[2024-08-08] MEDS: levETIRAcetam IV 1,000 MG in IV DEXTROSE 5% 100 ML IV STA (19:29)
[2024-08-08 19:45] VITALS: O2SAT 96
[2024-08-08 19:48] LABS: CALCIUM 9.3 mg/dL (8.5-10.1); CARBON DIOXIDE 27 mmol/L (21-32); CHLORIDE 100 mmol/L (98-107); CREATININE 1.3 mg/dL (0.6-1.3); GLUCOSE 154 mg/dL (74-106); LACTIC ACID 3.7 mmol/L (0.4-2.0); POTASSIUM 4.7 mmol/L (3.5-5.1); SODIUM SERUM 138 mmol/L (136-145); UREA NITROGEN, BLOOD 15 mg/dL (7-18)
[2024-08-08 19:56] LABS: ALANINE AMINOTRANSFERASE 11 U/L (16-63); ALBUMIN 2.9 g/dL (3.4-5.0); ALKALINE PHOSPHATASE 72 U/L (50-136); ASPARTATE AMINOTRANSFERASE 20 U/L (15-37); BILIRUBIN,TOTAL 0.3 mg/dL (0.2-1.0); NT-PRO BNP 53 pg/mL (0-125); TOTAL PROTEIN, SERUM 7.2 g/dL (6.4-8.2)
== END 2024-08-08 20:00 | disposition left against medical advice (07) ==
LOC: ER 18:04
DX: G40.909 Epilepsy, unspecified, not intractable, without status epilepticus (principal); R06.02 Shortness of breath; E11.9 Type 2 diabetes mellitus without complications; E78.5 Hyperlipidemia, unspecified; F17.200 Nicotine dependence, unspecified, uncomplicated; Z79.51 Long term (current) use of inhaled steroids; Z79.82 Long term (current) use of aspirin; Z79.84 Long term (current) use of oral hypoglycemic drugs; Z79.899 Other long term (current) drug therapy; Z85.46 Personal history of malignant neoplasm of prostate; Z88.0 Allergy status to penicillin; Z88.7 Allergy status to serum and vaccine
CPT/HCPCS: 36415; 71045; 83605; 84484; 85025; A4606; A4663; J1953

== ENCOUNTER 2024-11-30 15:00 | Inpatient (IN) | payer MEDICARE, OTHER ==
[~2024-11-30] VITALS: Ht 182.9 cm; Wt 72.6 kg
[2024-11-30] MEDS: IV NORMAL SALINE 1000 ML BAG IV ONE (16:00)
[2024-11-30 16:25] LABS: BASOPHILS # (AUTO) 0.1 K/UL (0.0-0.2); BASOPHILS % (AUTO) 0.8 % (0.0-2.0); CARBON DIOXIDE 28 mmol/L (21-32); CHLORIDE 97 mmol/L (98-107); CREATININE 0.9 mg/dL (0.6-1.3); EOSINOPHILS % (AUTO) 0.1 % (0.0-7.0); GLUCOSE 111 mg/dL (74-106); HEMATOCRIT 39.4 % (36.7-47.1); HEMOGLOBIN 12.8 g/dL (12.5-16.3); LYMPHOCYTES # (AUTO) 1.4 K/uL (0.8-4.8); LYMPHOCYTES % (AUTO) 11.2 % (20.5-51.5); MEAN CORPUSCULAR HEMOGLOBIN 29.4 uug (23.8-33.4); MEAN CORPUSCULAR HGB CONC 32 g/dL (32.5-36.3); MEAN CORPUSCULAR VOLUME 90.5 fL (73.0-96.2); MONOCYTES % (AUTO) 7.7 % (0.0-11.0); NEUTROPHILS # (AUTO) 10.3 K/uL (1.8-8.9); NEUTROPHILS % (AUTO) 80.2 % (38.5-71.5); PLATELET COUNT (AUTO) 226 K/uL (152-348); POTASSIUM 4.3 mmol/L (3.5-5.1); RED BLOOD CELL COUNT(AUTO) 4.35 MIL/uL (4.06-5.63); RED CELL DISTRIBUTION WIDTH 15.6 % (12.1-16.2); SODIUM SERUM 133 mmol/L (136-145); UREA NITROGEN, BLOOD 13 mg/dL (7-18); WHITE BLOOD COUNT (AUTO) 12.8 K/uL (3.6-10.2)
[2024-11-30 16:27] LABS: DIFFERENTIAL COMMENT 1
[2024-11-30 16:37] LABS: LACTIC ACID 2.4 mmol/L (0.4-2.0)
[2024-11-30 16:42] LABS: ALANINE AMINOTRANSFERASE 14 U/L (16-63); ALBUMIN 2.7 g/dL (3.4-5.0); ALKALINE PHOSPHATASE 67 U/L (50-136); ASPARTATE AMINOTRANSFERASE 14 U/L (15-37); BILIRUBIN,DIRECT 0.4 mg/dL (0.0-0.2); NT-PRO BNP 458 pg/mL (0-125); TOTAL PROTEIN, SERUM 7.5 g/dL (6.4-8.2)
[2024-11-30 18:02] LABS: *BILIRUBIN,URIN NEGATIVE (NEGATIVE); *BLOOD, URINE 2+ (NEGATIVE); *COLOR,URINE DARK YELLOW (YELLOW); *KETONES,URINE 2+ (NEGATIVE); *PROTEIN,URINE 2+ (NEGATIVE); LEUKOCYTE ESTERASE ,URINE TRACE (NEGATIVE); NITRITE, URINE POSITIVE (NEGATIVE); PH,URINE 6.5 (5.0-8.0); UGLUCOSE NEGATIVE (NEGATIVE)
[2024-11-30 18:07] LABS: *CLARITY,URINE SLIGHTLY CLOUDY (CLEAR)
[2024-11-30 18:10] LABS: BACTERIA,URINE MANY /HPF (NONE SEEN); SQUAMOUS EPITHELIAL CELL,UR FEW /HPF (NONE SEEN)
[2024-11-30] MEDS ORDERED: MAGNESIUM HYDROXIDE 30 ML LIQUID UDC PO PRN (18:45)
[2024-11-30] MEDS ORDERED: REMEDY ESSENTIAL ZINC PASTE 113 GM TP PRN (18:45)
[2024-11-30] MEDS ORDERED: TRAZODONE 50 MG TABLET PO PRN (18:45)
[2024-11-30] MEDS ORDERED: ACETAMINOPHEN 325 MG TABLET PO PRN (18:45)
[2024-11-30] MEDS ORDERED: AZITHROMYCIN 500MG/ D5W 250ML IVPB **ER PYXIS ONLY IV ONE (19:31)
[2024-11-30] MEDS: AZITHROMYCIN IV 500 MG in IV DEXTROSE 5% 250 ML IV ONE (19:39)
[2024-11-30] MEDS: IV NS 1000 ML 1,000 ML IV PRN (20:16)
[2024-11-30] MEDS ORDERED: CEFTRIAXONE /D5W 50ML IVPB **ER PYXIS IV ONE (20:57)
[2024-11-30] MEDS ORDERED: levoFLOXacin 500 MG/D5W 100 ML ONE (20:57)
[2024-11-30] MEDS: CEFTRIAXONE 1 G in IV DEXTROSE 5% 50 ML IV ONE (21:14)
[2024-11-30] MEDS: ALBUTEROL SULFATE 2.5 MG/3 ML NEBU NEB PRN (21:25)
[2024-11-30] MEDS: IPRATROPIUM BROMIDE 0.5 MG/2.5 ML NEBU NEB PRN (21:25)
[2024-11-30] MEDS: CLONAZEPAM 1 MG TABLET PO SCH (22:15)
[2024-11-30] MEDS: ATORVASTATIN 20 MG TABLET PO SCH (22:16)
[2024-11-30] MEDS: HEPARIN SODIUM,PORCINE 5,000 UNITS/ML VIAL SQ SCH (22:17)
[2024-11-30] MEDS: levoFLOXacin 500 MG/D5W 500 MG in PREMIXED 1 EACH IV SCH (22:18)
[2024-11-30 23:03] VITALS: BP 115/58; TEMP 98.2; O2SAT 97
[2024-12-01] VITALS (8 sets, daily range): BP systolic 120–159; BP diastolic 51–86; TEMP 97.4–99.3; O2SAT 94–99
[2024-12-01 07:39] LABS: BASOPHILS % (AUTO) 0.5 % (0.0-2.0); EOSINOPHILS % (AUTO) 0.4 % (0.0-7.0); HEMATOCRIT 34.5 % (36.7-47.1); HEMOGLOBIN 11.6 g/dL (12.5-16.3); LYMPHOCYTES # (AUTO) 1.2 K/uL (0.8-4.8); LYMPHOCYTES % (AUTO) 15.9 % (20.5-51.5); MEAN CORPUSCULAR HEMOGLOBIN 30.4 uug (23.8-33.4); MEAN CORPUSCULAR HGB CONC 34 g/dL (32.5-36.3); MEAN CORPUSCULAR VOLUME 90.6 fL (73.0-96.2); MONOCYTES # (AUTO) 0.7 K/uL (0.1-1.30); MONOCYTES % (AUTO) 9.3 % (0.0-11.0); NEUTROPHILS # (AUTO) 5.4 K/uL (1.8-8.9); NEUTROPHILS % (AUTO) 73.9 % (38.5-71.5); PLATELET COUNT (AUTO) 195 K/uL (152-348); RED BLOOD CELL COUNT(AUTO) 3.81 MIL/uL (4.06-5.63); RED CELL DISTRIBUTION WIDTH 15.5 % (12.1-16.2); WHITE BLOOD COUNT (AUTO) 7.4 K/uL (3.6-10.2)
[2024-12-01 07:47] LABS: DIFFERENTIAL COMMENT 1
[2024-12-01 07:59] LABS: CALCIUM 8.4 mg/dL (8.5-10.1); CARBON DIOXIDE 27 mmol/L (21-32); CHLORIDE 101 mmol/L (98-107); CREATINE KINASE, TOTAL 33 U/L (39-308); CREATININE 0.8 mg/dL (0.6-1.3); GLUCOSE 109 mg/dL (74-106); MAGNESIUM 1.8 mg/dL (1.8-2.4); POTASSIUM 3.8 mmol/L (3.5-5.1); SODIUM SERUM 136 mmol/L (136-145); UREA NITROGEN, BLOOD 9 mg/dL (7-18)
[2024-12-01] MEDS ORDERED: Medication Not On Formulary EA (Solifenacin Succinate (Vesicare) 1 TAB) PO SCH (09:00)
[2024-12-01] MEDS: levETIRAcetam 500 MG TABLET PO SCH (09:12)
[2024-12-01] MEDS: OXYBUTYNIN CHLORIDE 5 MG TABLET PO SCH (09:12)
[2024-12-01] MEDS: ASPIRIN EC 81 MG TABLET.DR PO SCH (09:12)
[2024-12-01] MEDS: METOPROLOL TARTRATE 25 MG TABLET PO SCH (09:13)
[2024-12-01] MEDS ORDERED: LOSA25TA27 PO (12:33)
[2024-12-01] MEDS ORDERED: ROSU20TA2 PO (12:34)
[2024-12-01] MEDS ORDERED: ROSU10TA29 PO (12:35)
[2024-12-01] MEDS ORDERED: DULO30CA2 PO (12:36)
[2024-12-01] MEDS ORDERED: PANT40TA2 PO (12:36)
[2024-12-01] MEDS ORDERED: ALBU8.5H8 IH (12:37)
[2024-12-01] MEDS ORDERED: ALBUTEROL SULFATE 8 GM HFA.AER.AD IH PRN (13:30)
[2024-12-01] MEDS: DULOXETINE 30 MG CAPSULE.DR PO SCH (17:38)
[2024-12-02 00:15] VITALS: BP 148/84; TEMP 98.6; O2SAT 93
[2024-12-02 06:15] VITALS: BP 162/85; TEMP 98.5; O2SAT 96
[2024-12-02 06:30] VITALS: BP 147/86; TEMP 98.5; O2SAT 95
[2024-12-02 07:40] VITALS: BP 155/84; TEMP 97.7; O2SAT 100
[2024-12-02] MEDS: LOSARTAN POTASSIUM 25 MG TABLET PO SCH (08:46)
[2024-12-02] MEDS: NICOTINE 14 MG/24HR PATCH TD SCH (08:47)
[2024-12-02] MEDS: PANTOPRAZOLE SODIUM 40 MG TABLET.DR PO SCH (09:17)
[2024-12-02 11:05] VITALS: BP 147/87; TEMP 98.2; O2SAT 95
[2024-12-02] MEDS ORDERED: ASPI-618 PO (12:38)
[2024-12-02] MEDS ORDERED: IPRA0.2S48 NEB (12:38)
[2024-12-02] MEDS ORDERED: METO25TA6 PO (12:38)
[2024-12-02] MEDS ORDERED: PRED20TA PO (12:38)
[2024-12-02] MEDS ORDERED: TRAZ-252 PO (12:38)
[2024-12-02] MEDS ORDERED: LEVO750T46 PO (12:38)
[2024-12-02] MEDS ORDERED: ALBU2.5V13 NEB (12:38)
[2024-12-02] MEDS ORDERED: ALBU18HF2 INH (12:38)
[2024-12-02] MEDS ORDERED: NICO-671 TD (12:38)
[2024-12-02] MEDS: methylPREDNISolone SOD SUCC 125 MG/2 ML VIAL IV ONE (12:49)
[2024-12-02] MEDS ORDERED: levoFLOXacin 500 MG TABLET PO SCH (21:00)
== END 2024-12-02 14:30 | disposition home health service (06) | DRG 871 ==
LOC: ER 15:00 → TELE3 19:44
PROVIDERS: ADMIT Nurse Practitioner Acute Care; ATTEND Nurse Practitioner Acute Care
DX: A41.50 Gram-negative sepsis, unspecified (principal); J15.69 Pneumonia due to other Gram-negative bacteria; N39.0 Urinary tract infection, site not specified; E87.20 Acidosis, unspecified; E44.0 Moderate protein-calorie malnutrition; J44.0 Chronic obstructive pulmonary disease with (acute) lower respiratory infection; E86.0 Dehydration; G40.909 Epilepsy, unspecified, not intractable, without status epilepticus; E88.09 Other disorders of plasma-protein metabolism, not elsewhere classified; F17.210 Nicotine dependence, cigarettes, uncomplicated; E78.5 Hyperlipidemia, unspecified; I10 Essential (primary) hypertension; R00.0 Tachycardia, unspecified; I49.3 Ventricular premature depolarization; E11.9 Type 2 diabetes mellitus without complications; Z88.0 Allergy status to penicillin; Z85.46 Personal history of malignant neoplasm of prostate; Z79.51 Long term (current) use of inhaled steroids; Z79.84 Long term (current) use of oral hypoglycemic drugs; Z79.899 Other long term (current) drug therapy; R26.2 Difficulty in walking, not elsewhere classified
CPT/HCPCS: 36415; 71045; 83605; 83735; 84100; 84484; 85025; 85730; 87040; 87086; 94664; 94760; C1758; G0378; J0456; J0696; J1644; J1956; J2919; J3590; J7040